=== PATIENT | female | born 1950 | race Caucasian/White ===

== ENCOUNTER 2017-11-26 14:01 | Inpatient (IN) | payer OTHER ==
[2017-11-26 17:23] LABS: Absolute Lymphocytes (CBC) 1.6 K/uL (0.7-4.9); Absolute Monocytes 0.7 K/uL (0.1-1.3); Absolute Neutrophil 13.7 K/uL (1.8-8.0); Basophils % 0.2 % (0-1.3); Eosinophils % 0.1 % (0-4.4); Hematocrit 41.4 % (36.0-45.0); Lymphocytes % 10.3 % (15.3-44.8); MCH 23.8 pg (27.0-35.0); MCV 76.7 fL (80-100); Monocytes % 4.1 % (3.3-12.3); RBC Red Blood Cell Count 5.41 M/uL (3.86-4.86)
--- NOTE | 2017-11-26 17:51 | RAD REPORT ---
EXAM DESCRIPTION: US - Abdomen Exam Limited - 11/26/2017 5:44 pm CLINICAL HISTORY: Abdominal pain. COMPARISON: 06/15/2016 FINDINGS: The gallbladder demonstrates multiple shadowing gallstones. No pericholecystic fluid or ga llbladder wall thickening. The common bile duct is normal measuring 3 mm. The liver demonstrates no findings of intrahepatic biliary dilatation. IMPRESSION: Cholelithiasis.
[2017-11-26 18:19] LABS: Urine Blood NEGATIVE (NEG); Urine Glucose NEGATIVE (NEG); Urine Protein TRACE (NEG); Urine Specific Gravity 1.015 (1.005-1.030); Urine pH 5.5 (5.0-7.0)
[2017-11-26 18:23] LABS: Potassium 3.6 mEq/L (3.6-5.0)
[2017-11-26 18:31] LABS: Urine Bacteria <20 /HPF (<20); Urine Culture Reflex Order NOT NEEDED; Urine RBC <5 /HPF (NONE SEEN)
[2017-11-26 18:38] LABS: Albumin 3.8 g/dL (3.2-5.5); Bilirubin Direct 0.6 mg/dL (0-0.2); Protein, Total 7.3 g/dL (6.0-8.3)
--- NOTE | 2017-11-26 18:55 | RAD REPORT ---
EXAM DESCRIPTION: CT - Stone Protocol - 11/26/2017 6:40 pm CLINICAL HISTORY: Flank pain. COMPARISON: None. TECHNIQUE: Axial images were obtained without oral or IV contrast. Lack of contrast limits solid org an and vascular assessment. The [id number] spans the entirety of the system partially obscuring uppermost abdomen and lung bases. Coronal reformatted images were obtained and reviewed. All CT scans are performed using dose optimization technique as appropriate and may include automated exposure control or mA/KV adjustment according to patient size. FINDINGS: The lower lung kaopor are clear. Imaged portions of the liver and spleen show no suspicious findings on non-contrast imaging. Mild per ipancreatic inflammatory changes noted suspicious for mild pancreatitis. Normal adrenal glands. No pa thologic lymphadenopathy in the abdomen or pelvis. Small inferior right renal calculi noted, largest measuring 4 mm. No hydronephrosis. No bowel obstruction, free air, free fluid or abscess. Normal appendix noted. No significant bony abnormality. Lumbar hardware is noted. IMPRESSION: Mild acute pancreatitis suspected. Correlation with amylase/ lipase is suggested. Right inferior nephrolithiasis. No hydronephrosis.
--- NOTE | 2017-11-26 18:55 | ER ---
Nurse's Notes [facility] Name: Yancy Titus Age: 67 yrs Sex: Female : 1950 Arrival Date: 11/26/2017 Time: 14:09 Bed 24 Private MD: Diagnosis: Acute pancreatitis Presentation: 11/26 14:27 Presenting complaint: Patient states: "Im having pain in my abdomen. Its not lk1 pancreatitis this time, the pain is on the wrong side.". Transition of care: patient was not received from another setting of care. Onset of symptoms was November 26, 2017 at 05:00. Care prior to arrival: None. 14:27 Method Of Arrival: Ambulatory lk1 14:27 Acuity: RACHEL 3 lk1 15:43 Initial Sepsis Screen: Does the patient meet any 2 criteria? No. Patient's initial lk1 sepsis screen is negative. Does the patient have a suspected source of infection? No. Patient's initial sepsis screen is negative. Triage Assessment: 14:28 General: Appears in no apparent distress. uncomfortable, Behavior is calm, cooperative, lk1 appropriate for age. Pain: Complains of pain in right upper quadrant Pain currently is 8 out of 10 on a pain scale. GI: Abdomen is round obese, Reports indigestion, nausea, Patient currently denies diarrhea, vomiting. Historical: - Allergies: 14:28 No Known Drug Allergies; lk1 - PMHx: 14:28 Hypertension; Pancreatitis; GERD; Cancer, Breast; lk1 - PSHx: 14:28 Breast biopsy; breast reduction; Hysterectomy; lk1 - Immunization history:: Adult Immunizations up to date. - Social history:: Smoking status: Patient/guardian denies using tobacco. Screenin:45 Abuse screen: Denies threats or abuse. Nutritional screening: No deficits noted. mb3 Tuberculosis screening: No symptoms or risk factors identified. Fall Risk IV access (20 points). Total Hutchison Fall Scale indicates No Risk (0-24 pts). Assessment: 16:27 General: Appears in no apparent distress. uncomfortable, Behavior is calm, cooperative, mb3 appropriate for age. Pain: Complains of pain in abdomen Pain radiates to right upper quadrant. Neuro: No deficits noted. Cardiovascular: Heart tones S1 S2 present Capillary refill < 3 seconds Patient's skin is warm and dry. Pulses are all present. Respiratory: No deficits noted. Airway is patent Respiratory effort is even, unlabored, Respiratory pattern is regular, symmetrical, Breath sounds are clear bilaterally. GI: Bowel sounds hypoactive in right upper quadrant, left upper quadrant, right lower quadrant and left lower quadrant Abd is soft Abdomen is tender to palpation in right upper quadrant and left upper quadrant Reports nausea, vomiting. : No signs and/or symptoms were reported regarding the genitourinary system. Musculoskeletal: No signs and/or symptoms reported regarding the musculoskeletal system. 18:15 Reassessment: No changes from previously documented assessment. Patient and/or family mb3 updated on plan of care and expected duration. Pain level reassessed. Patient is alert, oriented x 3, equal unlabored respirations, skin warm/dry/pink. 21:37 Reassessment: No changes from previously documented assessment. Patient and/or family mb3 updated on plan of care and expected duration. Pain level reassessed. Patient is alert, oriented x 3, equal unlabored respirations, skin warm/dry/pink. Vital Signs: 14:29 BP 112 / 65; Pulse 71; Resp 15; Temp 97.0(TE); Pulse Ox 99% on R/A; Weight 101.15 kg lk1 (R); Height 5 ft. 3 in. (160.02 cm) (R); Pain 8/10; 16:39 BP 149 / 81; Pulse 79; Resp 20; Pulse Ox 97% on R/A; mb3 18:00 BP 154 / 82; Pulse 81; Resp 20; Pulse Ox 95% ; mb3 21:36 BP 148 / 69; Pulse 84; Resp 18; Pulse Ox 96% on R/A; mb3 22:20 BP 146 / 72; Pulse 82; Resp 16; Pulse Ox 97% on R/A; mb3 22:40 BP 136 / 64; Pulse 87; Resp 18; Pulse Ox 96% on R/A; mb3 14:29 Body Mass Index 39.50 (101.15 kg, 160.02 cm) lk1 ED Course: 14:09 Patient arrived in ED. sb2 14:27 Triage completed. lk1 14:31 Arm band placed on left wrist. lk1 16:02 Tacos Ewing, ARIANA is Primary Nurse. mb3 16:08 Darnell Nicholson MD is Attending Physician. gs 16:26 Inserted saline lock: 22 gauge in left antecubital area, using aseptic technique. mb3 17:25 Ultrasound completed. Patient tolerated well. sg3 17:44 Abdomen Exam Limited In Process Unspecified. EDMS 18:[address] vm2 18:35 CT completed. Patient tolerated procedure well. Patient moved back from CT. kw1 18:40 CT Stone Protocol In Process Unspecified. EDMS 18:54 Monica Gao MD is Hospitalizing Provider. 19:55 Notified the Hospitalist of a critical lab result(s), AST 634. aa1 21:38 Patient has correct armband on for positive identification. Placed in gown. Bed in low mb3 position. Call light in reach. Side rails up X 1. 22:40 No provider procedures requiring assistance completed. Patient admitted, IV remains in mb3 place. Administered Medications: No medications were administered Outcome: 18:54 Decision to Hospitalize by Provider. gs 22:40 Admitted to Med/surg accompanied by tech, via wheelchair, room 207, with chart, Report mb3 called to Maria T Deutsch RN 22:40 Condition: stable 22:40 Instructed on the need for admit. 22:42 Patient left the ED. mb3 Signatures: Dispatcher [employer] EDMS Estefani Cross RN RN aa1 Aida Pichardo RN RN lk1 Sasha Capone 2 Darnell Nicholson MD MD Corina Hdz kw1 Roxanne Regan sg3 Latonya Wright sb2 Tacos Ewing, RN RN mb3 Corrections: (The following items were deleted from the chart) 17:12 17:02 In radiology for Abdomen Limited+US.RAD.BRZ. EDMS EDMS
--- NOTE | 2017-11-26 18:55 | EDPHYS ---
Physician Documentation [facility] Name: Yancy Titus Age: 67 yrs Sex: Female : 1950 Arrival Date: 11/26/2017 Time: 14:09 Bed 24 Private MD: ED Physician Darnell Nicholson HPI: 11/26 18:37 This 67 yrs old Female presents to ER via Ambulatory with complaints of gs Abdominal Pain. 18:37 The patient presents with abdominal pain. Onset: The symptoms/episode began/occurred gs acutely, this morning. The symptoms do not radiate. Associated signs and symptoms: Pertinent positives: nausea. The symptoms are described as crampy. Modifying factors: The symptoms are alleviated by nothing, the symptoms are aggravated by nothing. Severity of pain: At its worst the pain was moderate in the emergency department the pain is unchanged. The patient has experienced similar episodes in the past, a few times. Historical: - Allergies: 14:28 No Known Drug Allergies; lk1 - PMHx: 14:28 Hypertension; Pancreatitis; GERD; Cancer, Breast; lk1 - PSHx: 14:28 Breast biopsy; breast reduction; Hysterectomy; lk1 - Immunization history:: Adult Immunizations up to date. - Social history:: Smoking status: Patient/guardian denies using tobacco. ROS: 18:37 All other systems are negative. gs Exam: 18:47 Head/Face: Normocephalic, atraumatic. Eyes: Pupils equal round and reactive to light, gs extra-ocular motions intact. Lids and lashes normal. Conjunctiva and sclera are non-icteric and not injected. Cornea within normal limits. Periorbital areas with no swelling, redness, or edema. ENT: Nares patent. No nasal discharge, no septal abnormalities noted. Tympanic membranes are normal and external auditory canals are clear. Oropharynx with no redness, swelling, or masses, exudates, or evidence of obstruction, uvula midline. Mucous membranes moist. Neck: Trachea midline, no thyromegaly or masses palpated, and no cervical lymphadenopathy. Supple, full range of motion without nuchal rigidity, or vertebral point tenderness. No Meningismus. Chest/axilla: Normal chest wall appearance and motion. Nontender with no deformity. No lesions are appreciated. Cardiovascular: Regular rate and rhythm with a normal S1 and S2. No gallops, murmurs, or rubs. Normal PMI, no JVD. No pulse deficits. Respiratory: Lungs have equal breath sounds bilaterally, clear to auscultation and percussion. No rales, rhonchi or wheezes noted. No increased work of breathing, no retractions or nasal flaring. Back: No spinal tenderness. No costovertebral tenderness. Full range of motion. Skin: Warm, dry with normal turgor. Normal color with no rashes, no lesions, and no evidence of cellulitis. MS/ Extremity: Pulses equal, no cyanosis. Neurovascular intact. Full, normal range of motion. Neuro: Awake and alert, GCS 15, oriented to person, place, time, and situation. Cranial nerves II-XII grossly intact. Motor strength 5/5 in all extremities. Sensory grossly intact. Cerebellar exam normal. Normal gait. 18:47 Constitutional: The patient appears alert, awake, uncomfortable. 18:47 Abdomen/GI: Palpation: moderate abdominal tenderness, in the epigastric area and right upper quadrant. Vital Signs: 14:29 BP 112 / 65; Pulse 71; Resp 15; Temp 97.0(TE); Pulse Ox 99% on R/A; Weight 101.15 kg lk1 (R); Height 5 ft. 3 in. (160.02 cm) (R); Pain 8/10; 16:39 BP 149 / 81; Pulse 79; Resp 20; Pulse Ox 97% on R/A; mb3 18:00 BP 154 / 82; Pulse 81; Resp 20; Pulse Ox 95% ; mb3 21:36 BP 148 / 69; Pulse 84; Resp 18; Pulse Ox 96% on R/A; mb3 22:20 BP 146 / 72; Pulse 82; Resp 16; Pulse Ox 97% on R/A; mb3 22:40 BP 136 / 64; Pulse 87; Resp 18; Pulse Ox 96% on R/A; mb3 14:29 Body Mass Index 39.50 (101.15 kg, 160.02 cm) lk1 MDM: 16:50 Patient medically screened. 18:47 Data reviewed: vital signs, nurses notes. gs 18:53 Differential diagnosis: cholecystitis, Cholelithiasis, gastritis, non-specific abd gs pain, pancreatitis, Peptic Ulcer Disease. Response to treatment: the patient's symptoms have markedly improved after treatment, and as a result, I will admit patient. 11/26 16:50 Order name: Basic Metabolic Panel 11/26 16:50 Order name: CBC with Diff; Complete Time: 18:09 11/26 16:50 Order name: Hepatic Function 11/26 16:50 Order name: Lipase 11/26 16:50 Order name: Urine Microscopic Only; Complete Time: 18:38 11/26 16:51 Order name: Basic Metabolic Panel EDMD 11/26 16:50 Order name: IV Saline Lock; Complete Time: 16:56 11/26 16:50 Order name: Labs collected and sent 11/26 16:50 Order name: Urine Dipstick-Ancillary (obtain specimen) 11/26 17:11 Order name: Abdomen Exam Limited; Complete Time: 18:09 EDMD 11/26 17:33 Order name: Urine Dipstick--Ancillary (enter results); Complete Time: 18:38 11/26 18:09 Order name: CT Stone Protocol; Complete Time: 19:30 Administered Medications: No medications were administered Disposition: 11/26/17 18:54 Hospitalization ordered by Monica Gao for Inpatient Admission. Preliminary diagnosis is Acute pancreatitis. - Bed requested for Telemetry/MedSurg (Inpatient). - Status is Inpatient Admission. mb3 - Condition is Stable. - Problem is new. - Symptoms have improved. UTI on Admission? No Signatures: Dispatcher [employer] EDMD Corina Savage RN RN kl Therrien, Shelly, DOCTOR OF NURSE ANESTHESIA PRACTICE-C DOCTOR OF NURSE ANESTHESIA PRACTICE-Csnw Aida Pichardo, RN RN lk1 Darnell Nicholson MD MD Tacos Ewing RN RN mb3 Corrections: (The following items were deleted from the chart) 17:12 16:51 Abdomen Limited+US.RAD.BRZ ordered. [facility] EDMD 21:36 18:54 Hospitalization Ordered by Monica Gao MD for Inpatient Admission. Preliminary diagnosis is Acute pancreatitis. Bed requested for Telemetry/MedSurg (Inpatient). Status is Inpatient Admission. Condition is Stable. Problem is new. Symptoms have improved. UTI on Admission? No. 22:42 21:36 11/26/2017 18:54 Hospitalization Ordered by Monica Gao MD for Inpatient mb3 Admission. Preliminary diagnosis is Acute pancreatitis. Bed requested for Telemetry/MedSurg (Inpatient). Status is Inpatient Admission. Condition is Stable. Problem is new. Symptoms have improved. UTI on Admission? No. kl
--- NOTE | 2017-11-26 20:08 | P.HP ---
Certification for Inpatient Patient admitted to: Inpatient With expected LOS: >2 Midnights Practitioner: I am a practitioner with admitting privileges, knowledge of patient current condition, hospital course, and medical plan of care. Services: Services provided to patient in accordance with Admission requirements found in Title 42 Section 412.3 of the Code of Federal Regulations Patient History Date of Service: 11/26/17 Reason for admission: acute pancreatitis History of Present Illness: Ms Titus is a 67 years old woman with history of cholelithiasis, HTN, pancreatitis, who came to ED complaining of abdominal pain. The pain started last night, after ate "colombian food". At that time the pain was mild and diffuse. This morning, the pain was more intense, about 8/10, associated with 1 episode of vomiting and diarrhea. She denied fever or chills. In ER, lab work shows leukocytosis 16.0K, she was afebrile, CT abdomen was remarkable for mild pancreatitis, Abd US, report cholelithiasis, without cholecystitis, or duct dilation. Allergies No Known Drug Allergies Allergy (Verified 06/15/16 15:03) Unknown Home Medications: Nebivolol HCl [Bystolic*] 5 mg PO DAILY 04/24/13 Ramipril [Altace*] 5 mg PO DAILY 04/24/13 Tamoxifen Citrate [Nolvadex] 20 mg PO DAILY 04/24/13 Ciprofloxacin HCl [Cipro 500 MG Tablet] 500 mg PO BID #10 tab 06/17/16 Metronidazole 500 mg PO Q8H #15 tablet 06/17/16 - Past Medical/Surgical History Diabetic: No -: HTN -: History right breast cancer -: History of pancreatitis -: GERD -: Obesity -: Right breast lumpectomy -: Hysterectomy -: Skin cancer removal -: Back surgery Psychosocial/ Personal History: She is , has 1 child. She is retired returns clerk - Family History Mother -: Heart disease, Hypertension Father -: Stroke Sister -: Cancer (Breast cancer) Notes: Breast Cancer - Social History Smoking Status: Never smoker Alcohol use: No CD- Drugs: No Caffeine use: Yes Place of Residence: Home Review of Systems 10-point ROS is otherwise unremarkable Physical Examination - Physical Exam General: Alert, In no apparent distress HEENT: Atraumatic, PERRLA, Mucous membr. moist/pink, EOMI, Sclerae nonicteric Neck: Supple, 2+ carotid pulse no bruit, No LAD, Without JVD or thyroid abnormality Respiratory: Clear to auscultation bilaterally, Normal air movement Cardiovascular: Regular rate/rhythm, Normal S1 S2 Gastrointestinal: Normal bowel sounds, Tenderness (diffuse) Musculoskeletal: No tenderness Integumentary: No rashes Neurological: Normal speech, Normal strength at 5/5 x4 extr, Normal tone, Normal affect Lymphatics: No axilla or inguinal lymphadenopathy - Studies Laboratory Data (last 24 hrs) 11/26/17 17:44: Sodium 139, Potassium 3.6, BUN 12, Creatinine 0.76, Glucose 154 H, Total Bilirubin 1.0, AST 634 H*, ALT 253 H, Alkaline Phosphatase 117, Lipase 1195 H 11/26/17 17:00: WBC 16.0 H, Hgb 12.9, Hct 41.4, Plt Count 278 Assessment and Plan - Problems (Diagnosis) (1) Acute pancreatitis Onset Date: 06/20/14 Current Visit: No Status: Acute Qualifiers: Pancreatitis type: biliary Acute pancreatitis complication: no infection or necrosis Qualified Code(s): K85.10 - Biliary acute pancreatitis without necrosis or infection (2) Cholelithiasis Current Visit: No Status: Chronic Qualifiers: Cholelithiasis location: gallbladder Cholecystitis presence: without cholecystitis Biliary obstruction: without biliary obstruction Qualified Code(s): K80.20 - Calculus of gallbladder without cholecystitis without obstruction (3) Hypertension Onset Date: 06/15/16 Current Visit: No Status: Chronic Qualifiers: Hypertension type: essential hypertension Qualified Code(s): I10 - Essential (primary) hypertension (4) Nephrolithiasis Onset Date: 06/15/16 Current Visit: No Status: Chronic - Plan Ms Titus will be admitted to the hospital due to acute pancreatitis. This is most likely a gallstone pancreatitis, however, abdominal CT and US have nor shown duct dilation, obstruction or signs of cholecysistitis . Her lab work is remarkable for leukocytosis, elevated transaminases, normal total bili and normal alk phos. This is possible an early cholecystitis?, will cover empirically with IV Cipro and Flagyl. Will consult Dr Goode (surgery). Unfortunately, there is no GI specialist available over this weekend, so if ERCP shows obstructive stone, the patient will need to be transfer to a tertiary facility for higher level of care. - Advance Directives Does patient have a Living Will: No Does patient have a Durable POA for Healthcare: No - Code Status/Comfort Care Code Status Assessed: Yes Code Status: Full Code
[2017-11-26] MEDS ORDERED: ACETAMINOPHEN 500 MG TAB PO PRN (22:54)
[2017-11-26] MEDS ORDERED: ONDANSETRON 4 MG/2 ML VIAL IV PRN (22:54)
[2017-11-26] MEDS ORDERED: KETOROLAC 30 MG/ML INJ IV PRN (22:54)
[2017-11-26 23:09] VITALS: BMI 37.6
[2017-11-26] MEDS: NA CHLORIDE 0.9% 1,000 ML IV SCH (23:23)
[2017-11-26] MEDS: CIPROFLOXACIN 400mg IV 400 MG/200 ML BAG IV SCH (23:43)
[2017-11-27] MEDS: METRONIDAZOLE 500mg IVPB 500 MG/100 ML BAG IV SCH ×3 (00:30→17:04)
[2017-11-27 05:49] LABS: Absolute Lymphocytes (CBC) 2.3 K/uL (0.7-4.9); Absolute Monocytes 0.3 K/uL (0.1-1.3); Absolute Neutrophil 6.2 K/uL (1.8-8.0); Basophils % 0.3 % (0-1.3); Eosinophils % 0.3 % (0-4.4); Hematocrit 41.6 % (36.0-45.0); Lymphocytes % 26.2 % (15.3-44.8); MCH 24.4 pg (27.0-35.0); MCV 75.2 fL (80-100); MPV 9.2 fL (7.6-11.3); Monocytes % 3.1 % (3.3-12.3); RBC Red Blood Cell Count 5.54 M/uL (3.86-4.86)
[2017-11-27 06:08] LABS: Albumin 3.2 g/dL (3.2-5.5); Bilirubin Total 0.8 mg/dL (0.3-1.2); Magnesium 1.9 mg/dL (1.8-2.5); Potassium 3.2 mEq/L (3.6-5.0); Protein, Total 6.1 g/dL (6.0-8.3)
[2017-11-27] MEDS: NA CHLORIDE 0.9% 1,000 ML IV SCH ×3 (06:37→21:39)
[2017-11-27] MEDS: KCL 20 MEQ/100 mL IVPB 20 MEQ/100 ML BAG IV SCH ×3 (06:37→23:29)
[2017-11-27] MEDS: CIPROFLOXACIN 400mg IV 400 MG/200 ML BAG IV SCH ×2 (07:59→21:39)
--- NOTE | 2017-11-27 09:39 | P.PN ---
Subjective Date of Service: 11/27/17 (Hospitalist) Chief Complaint: acute pancreatitis Subjective: Improving (Patient is doing better abdominal pain has resolved admitted with gallstone pancreatitis) Review of Systems Unremarkable Physical Examination - Vital Signs Temperature: 98.4 F Blood Pressure: 137/61 Pulse: 70 Respirations: 16 Pulse Ox (%): 93 - Physical Exam General: Alert, Oriented x3 Neck: Supple Respiratory: Clear to auscultation bilaterally Cardiovascular: No edema Gastrointestinal: Normal bowel sounds, No ascites, No masses, No rebound, No guarding, Other Musculoskeletal: No clubbing, No swelling Integumentary: No rashes - Studies Laboratory Data (last 24 hrs) 11/26/17 17:44: Sodium 139, Potassium 3.6, BUN 12, Creatinine 0.76, Glucose 154 H, Total Bilirubin 1.0, AST 634 H*, ALT 253 H, Alkaline Phosphatase 117, Lipase 1195 H 11/26/17 17:00: WBC 16.0 H, Hgb 12.9, Hct 41.4, Plt Count 278 Assessment & Plan - Problems (Diagnosis) (1) Gallstone pancreatitis Current Visit: Yes Status: Acute Plan: Patient is 67 years of age admitted with gallstone pancreatitis clinically improving abdominal pain has resolved liver function tests are have been improving type basal also declined awaiting surgical Consul common bile duct stone is not dilated patient is on IV fluids doubt sepsis await surgical consult she will need an MRCP white count normal
--- NOTE | 2017-11-27 14:58 | P.CNS ---
Date of Consult: 11/27/17 PC: This 67-year-old female presents to the emergency room with severe abdominal pain for severe abdominal pain for diagnosis and treatment. HPC: The patient has experienced some sudden onset of some upper abdominal pain yesterday. Went to the right side of her abdomen. Also straight through to her back in her shoulder. Describes as as very severe pain. PMH: Patient has had 2 prior attacks of pancreatitis. This is her 3rd episode. Denies any other medical issues. PSHx: Previous vaginal hysterectomy, SOC: No known allergies SYS REVIEW: No cough, wheeze, shortness of breath. No chest pain or palpitations. No urinary complaints. Has been having small intermittent reminders of her right upper quadrant abdominal pain over the last few months but nothing severe as this. Weight has been steady, has not been jaundiced O/E awake alert comfortable today HEENT: Not icteric Chest: Chest movement equal bilaterally ABD: Soft nontender LOCO: Intact DATA: Elevated liver enzymes and pancreatic enzymes IMPRESSION: Gallstone pancreatitis PLAN: Patient is gallstone pancreatitis. Appears to be resolving. Also has gallstones in her gallbladder. I will take her to the operating room tomorrow for a laparoscopic cholecystectomy with intraoperative cholangiogram. If we see filling defects, will refer to GI for ERCP. The patient is anxious to get this resolved that she has plans for next week in [place]. The risks of this procedure were discussed with the patient. The possibility of bleeding, infection, injury to bile ducts blood vessels and intestines. The possible need for an open and/or further surgeries and procedures were explained. Flutter upper for pancreatitis was also outlined. She understands and wants us to proceed.
[2017-11-28] MEDS: METRONIDAZOLE 500mg IVPB 500 MG/100 ML BAG IV SCH ×3 (01:59→16:49)
[2017-11-28] MEDS: KCL 20 MEQ/100 mL IVPB 20 MEQ/100 ML BAG IV SCH (04:46)
[2017-11-28] MEDS ORDERED: KCL 20 MEQ/100 mL IVPB 20 MEQ/100 ML BAG IV ONE (05:04)
[2017-11-28] MEDS ORDERED: NA CHLORIDE 0.9% 1,000 ML ONE (08:33)
[2017-11-28] MEDS ORDERED: GLYCOPYRROLATE 0.2 MG/ML SYR ONE (08:42)
[2017-11-28] MEDS ORDERED: PROPOFOL 200 MG/20 ML VIAL IV ONE (08:42)
[2017-11-28] MEDS ORDERED: FENTANYL CITR 100 MCG/2 ML ONE (08:42)
[2017-11-28] MEDS ORDERED: MORPHINE 10 MG/ML VIAL ONE (08:43)
[2017-11-28] MEDS ORDERED: MIDAZOLAM HCL 2 MG/2 ML INJ ONE (08:43)
[2017-11-28] MEDS ORDERED: KETOROLAC 30 MG/ML INJ ONE (08:43)
[2017-11-28] MEDS ORDERED: ROCURONIUM 50 MG/5 ML VIAL IV ONE (08:43)
[2017-11-28] MEDS ORDERED: NEOSTIGMINE 1 MG/ML -5 ML SYRINGE ONE (08:44)
[2017-11-28] MEDS ORDERED: LIDOCAINE 1% MPF 2 ML AMPULE ONE (08:44)
--- NOTE | 2017-11-28 09:02 | P.PN ---
Date of Service: 11/28/17 S.: Patient is somewhat better today, still having mild discomfort O.: Abdomen is soft, mild right upper quadrant tenderness A: Patient is improved over last 48 hr as far as her pain and labs. P: I will take to the operating room for laparoscopic cholecystectomy with intraoperative cholangiogram. Once again I have discussed the risks with her . She understands and wants to proceed.
[2017-11-28] MEDS ORDERED: METOCLOPRAMIDE 10 MG/2mL INJ ONE (09:08)
[2017-11-28] MEDS: CIPROFLOXACIN 400mg IV 400 MG/200 ML BAG IV SCH ×2 (09:15→20:11)
--- NOTE | 2017-11-28 10:47 | P.OP ---
Preoperative diagnosis: Gallstone pancreatitis Postoperative diagnosis: The same Primary procedure: Laparoscopic cholecystectomy Secondary procedure: Cholangiogram Anesthesia: General Estimated blood loss: Less than 10 cc Specimen: 1 gallbladder and contents Operative Technique: The patient brought to the operating room and placed supine on the table. After the induction of adequate general endotracheal anesthesia, the area of the abdomen was prepped with a DuraPrep solution, she was draped in usual aseptic manner. A subumbilical incision was made. This brought down through the skin and subcutaneous tissue. The tissue port was used to enter the peritoneal cavity and created pneumoperitoneum to approximately 12 mm of mercury. Under direct vision a 5 mm trocar was placed in the upper midline, and 2 other 5 mm trocars on the right lateral side of the abdomen. With the patient placed in reverse Trendelenburg and rolled to the left were able to visualize the right upper quadrant. We could see a distended and mildly inflamed gallbladder. A grasper was placed on the fundus. It was necessary to aspirate the contents of the gallbladder to place another grasper on Cisco's pouch. After having done this we were able to apply lateral traction. Gentle dissection was began to expose the cystic duct and artery. A clip was placed between the gallbladder and the cystic duct. An opening was made into the cystic duct through which we obtained a normal intraoperative cholangiogram. There was good flow contrast into the duodenum, and no filling defects were noted. At this point the cholangiogram catheter was removed. Clips were placed on the distal portion of the cystic duct which was now fully transected. The cystic artery was identified clipped and divided. The gallbladder was now dissected free from the liver bed, placed into an Endo-Catch, and brought out through the umbilical trocar site. Attention was turned back towards the liver itself. There is inspected to ensure adequate hemostasis. The irrigating fluid was aspirated from the peritoneal cavity. The umbilical trocar site was approximated using the Endo Close an absorbable suture. At this point the anterior abdominal wall was Jeremy blocked using 0.25% Marcaine. The trocars were now removed, the pneumoperitoneum collapse, in the umbilical suture tied. Edmundo were then applied to the skin. At the end of the procedure she was stable when sent to the recovery room. Needle sponge instrument count were correct. No drains were placed. Complications: None
[2017-11-28] MEDS ORDERED: ONDANSETRON 4 MG/2 ML VIAL IV PRN (10:48)
[2017-11-28] MEDS ORDERED: Morphine 2 MG/2 ML SYR IV PRN (10:48)
[2017-11-28] MEDS ORDERED: HYDROCODONE/APAP 7.5/325 MG TAB PO PRN (10:48)
[2017-11-28 10:52] VITALS: O2SAT 97
--- NOTE | 2017-11-28 11:53 | P.PN ---
Subjective Date of Service: 11/28/17 Chief Complaint: Status post cholecystectomy Patient is status post cholecystectomy and doing well this morning saw her after the surgery very comfortable hemodynamically stable no pain little drowsy Review of Systems is unable to be obtained Physical Examination - Vital Signs Temperature: 97.5 F Blood Pressure: 160/67 Pulse: 71 Respirations: 16 Pulse Ox (%): 96 - Physical Exam General: Other (Drowsy but arousable+) Neck: Supple Respiratory: Clear to auscultation bilaterally Cardiovascular: No edema, Regular rate/rhythm, Normal S1 S2 Assessment & Plan - Problems (Diagnosis) (1) Gallstone pancreatitis Current Visit: Yes Status: Acute Plan: Patient is doing well status post cholecystectomy continue with current medications possible discharge tomorrow doubt sepsis
[2017-11-28] MEDS: NA CHLORIDE 0.9% 1,000 ML IV SCH ×2 (11:55→20:10)
--- NOTE | 2017-11-28 14:42 | RAD REPORT ---
EXAM DESCRIPTION: RADCholangiogram Oper-Xray Or11/28/2017 1:51 pm CLINICAL HISTORY: Abdominal pain FINDINGS: The examination was performed by Dr. Goode. The cystic duct was cannulated and contrast administered. Contrast flowed into the duodenum. The biliary tree is normal caliber without a filling defect seen. The visualized pancreatic duct appears unremarkable. Please refer to the referring surgeon's report for additional findings
[2017-11-28] MEDS ORDERED: POTASSIUM 25 MEQ EFFERV TAB PO ONE (19:08)
--- NOTE | 2017-11-28 21:05 | P.PN ---
Subjective Date of Service: 11/28/17 Chief Complaint: Status post cholecystectomy Physical Examination - Vital Signs Temperature: 97.9 F Blood Pressure: 173/77 Pulse: 67 Respirations: 18 Pulse Ox (%): 99 Assessment & Plan - Problems (Diagnosis) (1) Gallstone pancreatitis Current Visit: Yes Status: Acute (2) Abdominal pain Onset Date: 06/15/16 Current Visit: No Status: Acute Qualifiers: Abdominal location: right upper quadrant Qualified Code(s): R10.11 - Right upper quadrant pain (3) Cholelithiasis Current Visit: No Status: Chronic Qualifiers: Cholelithiasis location: gallbladder Cholecystitis presence: with cholecystitis Cholecystitis acuity: acute and chronic Biliary obstruction: without biliary obstruction Qualified Code(s): K80.12 - Calculus of gallbladder with acute and chronic cholecystitis without obstruction (4) GERD (gastroesophageal reflux disease) Onset Date: 06/15/16 Current Visit: No Status: Chronic Qualifiers: Esophagitis presence: esophagitis presence not specified Qualified Code(s) : K21.9 - Gastro-esophageal reflux disease without esophagitis (5) Hypertension Onset Date: 06/15/16 Current Visit: No Status: Chronic Qualifiers: Hypertension type: essential hypertension Qualified Code(s): I10 - Essential (primary) hypertension (6) Obesity Current Visit: Yes Status: Chronic Qualifiers: Obesity type: due to excess calories Obesity classification: adult class 2 (BMI 35 - 39.9) Serious obesity comorbidity presence: with serious comorbidity Body mass index: BMI 37.0-37.9 Qualified Code(s): E66.01 - Morbid (severe) obesity due to excess calories; Z68.37 - Body mass index (BMI) 37.0-37.9, adult (7) Nephrolithiasis Onset Date: 06/15/16 Current Visit: No Status: Chronic
[2017-11-29] MEDS: METRONIDAZOLE 500mg IVPB 500 MG/100 ML BAG IV SCH ×2 (00:05→08:29)
[2017-11-29 06:02] LABS: Potassium 3.6 mEq/L (3.6-5.0)
[2017-11-29] MEDS ORDERED: POTASSIUM 25 MEQ EFFERV TAB PO ONE (06:08)
[2017-11-29] MEDS: CIPROFLOXACIN 400mg IV 400 MG/200 ML BAG IV SCH (08:30)
[2017-11-29] MEDS ORDERED: MORPHINE 4 MG/ML SYR IV PRN (08:47)
[2017-11-29 11:49] VITALS: BP 157/84; TEMP 99
--- NOTE | 2017-11-29 11:55 | P.DS ---
Admission Date: 11/26/17 Discharge Date: 11/29/17 Primary Care Provider: Dr. Nguyen Disposition: ROUTINE DISCHARGE Discharge Condition: GOOD Reason for Admission: Status post cholecystectomy Consultations: Surgery-Dr. Nguyen Procedures: Surgery: Laparoscopic cholecystectomy with intraoperative cholangiogram. - Problems (1) Gallstone pancreatitis Current Visit: Yes Status: Acute (2) Abdominal pain Onset Date: 06/15/16 Current Visit: No Status: Acute Qualifiers: Abdominal location: right upper quadrant Qualified Code(s): R10.11 - Right upper quadrant pain (3) Cholelithiasis Current Visit: No Status: Chronic Qualifiers: Cholelithiasis location: gallbladder Cholecystitis presence: with cholecystitis Cholecystitis acuity: acute and chronic Biliary obstruction: without biliary obstruction Qualified Code(s): K80.12 - Calculus of gallbladder with acute and chronic cholecystitis without obstruction (4) GERD (gastroesophageal reflux disease) Onset Date: 06/15/16 Current Visit: No Status: Chronic Qualifiers: Esophagitis presence: esophagitis presence not specified Qualified Code(s) : K21.9 - Gastro-esophageal reflux disease without esophagitis (5) Hypertension Onset Date: 06/15/16 Current Visit: No Status: Chronic Qualifiers: Hypertension type: essential hypertension Qualified Code(s): I10 - Essential (primary) hypertension (6) Obesity Current Visit: Yes Status: Chronic Qualifiers: Obesity type: due to excess calories Obesity classification: adult class 2 (BMI 35 - 39.9) Serious obesity comorbidity presence: with serious comorbidity Body mass index: BMI 37.0-37.9 Qualified Code(s): E66.01 - Morbid (severe) obesity due to excess calories; Z68.37 - Body mass index (BMI) 37.0-37.9, adult (7) Nephrolithiasis Onset Date: 06/15/16 Current Visit: No Status: Chronic (8) Diabetes mellitus Current Visit: Yes Status: Acute Qualifiers: Diabetes mellitus type: type 2 Diabetes mellitus manager long term care insulin use: without manager long term care use Diabetes mellitus complication status: with other specified complication Qualified Code(s): E11.69 - Type 2 diabetes mellitus with other specified complication (9) Elevated liver function tests Current Visit: Yes Status: Acute (10) Diabetic neuropathy Current Visit: Yes Status: Acute Qualifiers: Diabetes mellitus type: type 2 Diabetes mellitus complication detail: diabetic polyneuropathy Qualified Code(s): E11.42 - Type 2 diabetes mellitus with diabetic polyneuropathy Brief History of Present Illness: 67-year-old female presented to the emergency room with abdominal pain. Nausea and vomiting was also noted Patient found to have gallstone pancreatitis. The patient was admitted for evaluation and treatment. Hospital Course: The patient was found to have gallstone pancreatitis. Patient evaluated by surgery. Surgery recommended. Patient had laparoscopic cholecystectomy with intraoperative cholangiogram. No dilation the common bile duct was noted procedure well. At discharge she is without any significant nausea or vomiting. Patient will continue with Cipro 500 mg 1 pill twice daily and Flagyl 500 mg 1 pill 3 times a day for. Patient will continue with postoperative instructions. No heavy lifting, pushing or pulling. Patient will follow up with surgery on Wednesday. Patient has diabetes. Patient will continue with her medication-metformin. Recommendation is to maintain blood sugars less 140 fasting and less than 200 after meals. Further adjustment can be done by her PCP. Patient has hypertension. Patient will continue with her medication. Recommendation is to maintain blood pressures less 150/80. Further adjustment can be done by her PCP. Patient has diabetic neuropathy. Patient will continue with her medication. Patient has GERD. Patient will continue with her medication. Patient had elevated liver functions secondary to gallstone pancreatitis. CT scan also showed right inferior nephrolithiasis. No hydronephrosis noted. This can be followed up by urology as an outpatient. Vital Signs/Physical Exam: Temp Pulse Resp BP Pulse Ox 99.0 F 71 18 157/84 H 94 11/29/17 11:48 11/29/17 11:48 11/29/17 11:48 11/29/17 11:48 11/29/17 11:48 General: Alert, In no apparent distress, Oriented x3, Cooperative HEENT: Atraumatic Neck: Supple Respiratory: Clear to auscultation bilaterally, Normal air movement Cardiovascular: Normal pulses, Regular rate/rhythm Gastrointestinal: Normal bowel sounds, Soft and benign, Non-distended, No tenderness (No significant pain noted.), No masses, No rebound, No guarding, Other (Postop changes noted.) Musculoskeletal: No erythema, No tenderness, No warmth Integumentary: No tenderness/swelling, No erythema, No warmth, No cyanosis Neurological: Normal speech, Normal strength at 5/5 x4 extr, Normal tone, Normal affect Laboratory Data at Discharge: WBC 8.8 K/uL (4.3-10.9) D 11/27/17 04:36 Hgb 13.5 g/dL (12.0-15.0) 11/27/17 04:36 Hct 41.6 % (36.0-45.0) 11/27/17 04:36 Plt Count 217 K/uL (152-406) D 11/27/17 04:36 Sodium 137 mEq/L (135-145) 11/29/17 05:17 Potassium 3.6 mEq/L (3.6-5.0) 11/29/17 05:17 BUN 6 mg/dL (6-20) 11/29/17 05:17 Creatinine 0.66 mg/dL (0.44-1.00) 11/29/17 05:17 Glucose 114 mg/dL (65-120) 11/29/17 05:17 Magnesium 1.9 mg/dL (1.8-2.5) 11/27/17 04:36 Total Bilirubin 0.8 mg/dL (0.3-1.2) 11/27/17 04:36 AST 314 IU/L (10-42) H* D 11/27/17 04:36 ALT 235 IU/L (10-60) H 11/27/17 04:36 Alkaline Phosphatase 109 IU/L (42-121) 11/27/17 04:36 Lipase 154 U/L (22-51) H 11/27/17 04:36 Home Medications: Amitriptyline [Elavil*] 10 mg PO BEDTIME 11/26/17 Bimatoprost [Latisse] 1 drop OT BEDTIME 11/26/17 Hydrochlorothiazide [Hydrochlorothiazide*] 12.5 mg PO DAILY 11/26/17 Metformin HCl [Glucophage*] 500 mg PO DAILY 11/26/17 Multivit-Minerals/Folic/Ginkgo [One Daily Women's 50+ Tablet] 1 tab PO DAILY Nebivolol HCl [Bystolic*] 5 mg PO DAILY 11/26/17 Omeprazole 20 mg PO DAILY 11/26/17 Ramipril [Altace*] 5 mg PO DAILY 11/26/17 Ciprofloxacin HCl [Cipro 500 MG Tablet] 500 mg PO BID #14 tab 11/29/17 Metronidazole [Flagyl] 500 mg PO Q8H #21 tablet 11/29/17 Tramadol HCl [Ultram] 50 mg PO TID PRN #20 tablet 11/29/17 New Medications: Ciprofloxacin HCl [Cipro 500 MG Tablet] 500 mg PO BID #14 tab Metronidazole [Flagyl] 500 mg PO Q8H #21 tablet Tramadol HCl [Ultram] 50 mg PO TID PRN #20 tablet PRN Reason: Pain Patient Discharge Instructions: 1. Patient will need to follow up with a PCP in 1 week to follow up this hospitalization. 2. The patient was found to have gallstone pancreatitis. Patient evaluated by surgery. Patient had laparoscopic cholecystectomy with intraoperative cholangiogram. Patient tolerated procedure well. At discharge she is without any significant nausea or vomiting. Patient will continue with Cipro 500 mg 1 pill twice daily and Flagyl 500 mg 1 pill 3 times a day for. A limited supply of pain medication- tramadol 50 mg 1 pill 3 times a day as needed for pain will be provided. Patient will continue with postoperative instructions. No heavy lifting, pushing or pulling. Patient will follow up with surgery on Wednesday. 3. Patient has diabetes. Patient will continue with her medication-metformin. Recommendation is to maintain blood sugars less 140 fasting and less than 200 after meals. Further adjustment can be done by her PCP. 4. Patient has hypertension. Patient will continue with her medication. Recommendation is to maintain blood pressures less 150/80. Further adjustment can be done by her PCP. 5. Patient has diabetic neuropathy. Patient will continue with her medication. 6. Patient has GERD. Patient will continue with her medication. 7. Patient had elevated liver functions secondary to gallstone pancreatitis. CT scan also showed right inferior nephrolithiasis. No hydronephrosis noted. This can be followed up by urology as an outpatient. Diet: ADA Activity: Fall precautions Time spent managing pt's care (in minutes): 55
[2017-11-29] MEDS ORDERED: BIMATOPROST OT SCH (21:00)
[2017-11-29] MEDS ORDERED: AMITRIPTYLINE 10 MG TAB PO SCH (21:00)
[2017-11-30] MEDS ORDERED: PANTOPRAZOLE 40MG TABLET PO SCH (06:30)
[2017-11-30] MEDS ORDERED: MULTIVIT W/ MINERAL TAB PO SCH (09:00)
[2017-11-30] MEDS ORDERED: hydroCHLOROthiazide 12.5 MG CAP PO SCH (09:00)
[2017-11-30] MEDS ORDERED: NEBIVOLOL HCL 5 MG TAB PO SCH (09:00)
[2017-11-30] MEDS ORDERED: RAMIPRIL 5 MG CAP PO SCH (09:00)
[2017-11-30] MEDS ORDERED: METFORMIN HCL 500 MG TAB PO SCH (12:00)
== END 2017-11-29 14:25 | disposition home or self-care (01) | DRG 418 ==
LOC: ER 14:01 → ERHOLD 19:11 → 2ND 21:41
PROVIDERS: ADMIT Internal Medicine; ATTEND Internal Medicine
PROC: BF00YZZ Plain Radiography of Bile Ducts using Other Contrast (ICD-10-PCS; 2017-11-28)
PROC: 0FT44ZZ Resection of Gallbladder, Percutaneous Endoscopic Approach (ICD-10-PCS; principal; 2017-11-28 09:00)
DX: K85.10 Biliary acute pancreatitis without necrosis or infection (principal); K80.12 Calculus of gallbladder with acute and chronic cholecystitis without obstruction; E11.40 Type 2 diabetes mellitus with diabetic neuropathy, unspecified; N20.0 Calculus of kidney; I10 Essential (primary) hypertension; R79.89 Other specified abnormal findings of blood chemistry; E66.01 Morbid (severe) obesity due to excess calories; Z68.37 Body mass index [BMI] 37.0-37.9, adult; Z85.3 Personal history of malignant neoplasm of breast
CPT/HCPCS: 36415; 74176; 74300; 76377; 76705; 80048; 80053; 80076; 81003; 81015; 83690; 83735; 84132; 85025; 88304; 88305; 99285; J0744; J2001; J2250; J2710; J2765; J3010; J7030; Q9967